=== PATIENT | female | born 1995 | race Caucasian/White ===

== ENCOUNTER 2016-11-29 21:55 | Emergency (ER) | payer BC ==
[~2016-11-29] VITALS: Ht 160 cm; Wt 93.5 kg
[2016-11-29 21:58] VITALS: TEMP 37; Ht 160 cm; Wt 93.5 kg
[2016-11-29] MEDS ORDERED: BCPILLS PO (22:28)
[2016-11-29] MEDS ORDERED: DiphenhydrAMINE HCL 50 MG/ML VIAL IV STA (22:35)
[2016-11-29] MEDS ORDERED: DEXAMETHASONE SOD INJ 10 MG/ML VIAL IV STA (22:35)
[2016-11-29] MEDS ORDERED: PROCHLORPERAZINE 5 MG/ML 2 ML VIAL IV STA (22:35)
[2016-11-29] MEDS ORDERED: SODIUM CHLORIDE 0.9% 1000ML 1,000 ML IV STA (22:35)
[2016-11-29] MEDS ORDERED: KETOROLAC TROMETHAMINE 30 MG/ML VIAL IV STA (22:35)
--- NOTE | 2016-11-29 23:06 | EMERGENCY ROOM VISIT NOTE ---
History Report prepared by Blue: Coty Castillo Under the Supervision of: Dr. Galileo Erwin M.D. First contact with patient: 22:27 Chief Complaint: HEADACHE Stated Complaint: PERSISTING HEADACHEMWOKE UP W UPSET STOMACH,FEVER History of Present Illness The patient is a 21 year old female who presents to the Emergency Room with complaints of constant headache for the past 3 days. She reports a history of headaches that typically occur around the 3rd week of her menstrual cycle. She has never followed up with neurology or had any imaging of her head. The patient states that this particular headache is different than her typical headaches. Her LNMP was 1 week ago, so the timing is different. She reports that today she developed nausea with her headache, which has never happened before. The patient's pain started in the front of her head but has moved into the back of her head and her neck. She rates her current pain as a 4/10 in severity. She denies any pain with movement of neck. She denies fever, vomiting , abdominal pain, chance of , and any changes in vision. The patient has been taking ibuprofen for her symptoms. Source of History: patient Onset: 3 days ago Position: head Symptom Intensity: 4/10 Timing: constant Modifying Factors (Relieving): ibuprofen Associated Symptoms: + nausea, No abdominal pain, No fevers, No vomiting Review of Systems See HPI for pertinent positives & negatives. A total of 10 systems reviewed and were otherwise negative. Past Medical & Surgical Medical Problems: (1) PCOS (polycystic ovarian syndrome) Surgical Problems: (1) H/O wisdom tooth extraction Family History Diabetes mellitus Hypertension Social History Smoking Status: Never Smoker Smokeless Tobacco Use: No Alcohol Use: occasionally Marital Status: single Housing Status: lives with roommate Occupation Status: [employer] student Current/Historical Medications Scheduled Control Pills ( Control Pills), 1 TAB PO DAILY Allergies Coded Allergies: No Known Allergies (Unverified , 11/29/16) Physical Exam Vital Signs Date Time Temp Pulse Resp B/P Pulse Ox O2 Delivery O2 Flow Rate FiO2 11/29/16 23:22 54 11/29/16 23:18 58 24 142/79 99 Room Air 11/29/16 23:14 99 Room Air 11/29/16 21:58 37.0 78 20 168/83 98 Room Air Physical Exam GENERAL: Patient is a healthy-appearing well-nourished 21 year old female. HEAD: Normocephalic atraumatic EYES: Ocular movements intact pupils equal and react to light OROPHARYNX mucous membranes are moist no exudates present no erythema or edema present NECK: Supple no nuchal rigidity, no evidence of meningitis or encephalitis on exam. CHEST: Good equal expansion LUNGS: Clear and equal to auscultation CARDIAC: Normal S1 and S2 ABDOMEN: Soft nontender no guarding BACK: No CVA tenderness EXTREMITIES: No pain upon palpation normal muscle strength in all groups no clubbing cyanosis or edema NEURO: Patient is following commands is answering questions appropriately. Alert and oriented x3 Cranial Nerves 2-12 grossly intact Medical Decision & Procedures Laboratory Results 11/29/16 23:00 Red Blood Count 4.62, Mean Corpuscular Volume 80.5, Mean Corpuscular Hemoglobin 29.0, Mean Corpuscular Hemoglobin Concent 36.0, Mean Platelet Volume 10.7, Neutrophils (%) (Auto) 63.1, Lymphocytes (%) (Auto) 28.0, Monocytes (%) (Auto) 7.4, Eosinophils (%) (Auto) 1.0, Basophils (%) (Auto) 0.2, Neutrophils # (Auto) 5.65, Lymphocytes # (Auto) 2.51, Monocytes # (Auto) 0.66, Eosinophils # (Auto) 0.09, Basophils # (Auto) 0.02 11/29/16 23:00 Test 11/29/16 23:00 11/29/16 23:20 White Blood Count 8.96 K/uL (4.8-10.8) Red Blood Count 4.62 M/uL (4.2-5.4) Hemoglobin 13.4 g/dL (12.0-16.0) Hematocrit 37.2 % (37-47) Mean Corpuscular Volume 80.5 fL (80-100) Mean Corpuscular Hemoglobin 29.0 pg (25-34) Mean Corpuscular Hemoglobin Concent 36.0 g/dl (32-36) Platelet Count 226 K/uL (130-400) Mean Platelet Volume 10.7 fL (7.4-10.4) Neutrophils (%) (Auto) 63.1 % Lymphocytes (%) (Auto) 28.0 % Monocytes (%) (Auto) 7.4 % Eosinophils (%) (Auto) 1.0 % Basophils (%) (Auto) 0.2 % Neutrophils # (Auto) 5.65 K/uL (1.4-6.5) Lymphocytes # (Auto) 2.51 K/uL (1.2-3.4) Monocytes # (Auto) 0.66 K/uL (0.11-0.59) Eosinophils # (Auto) 0.09 K/uL (0-0.5) Basophils # (Auto) 0.02 K/uL (0-0.2) RDW Standard Deviation 36.3 fL (36.4-46.3) RDW Coefficient of Variation 12.5 % (11.5-14.5) Immature Granulocyte % (Auto) 0.3 % Immature Granulocyte # (Auto) 0.03 K/uL (0.00-0.02) Red Blood Cell Morphology Unremarkable Anion Gap 15.0 mmol/L (3-11) Est Creatinine Clear Calc Drug Dose 140.1 ml/min Estimated GFR () 144.2 Estimated GFR (Non- 124.4 BUN/Creatinine Ratio 21.7 (10-20) Calcium Level 8.9 mg/dl (8.5-10.1) Total Bilirubin 0.2 mg/dl (0.2-1) Direct Bilirubin < 0.1 mg/dl (0-0.2) Aspartate Amino Transf (AST/SGOT) 16 U/L (15-37) Alanine Aminotransferase (ALT/SGPT) 27 U/L (12-78) Alkaline Phosphatase 53 U/L (45-117) Total Protein 7.7 gm/dl (6.4-8.2) Albumin 3.7 gm/dl (3.4-5.0) Urine Color YELLOW Urine Appearance CLEAR (CLEAR) Urine pH 5.0 (4.5-7.5) Urine Specific Stryker 1.014 (1.000-1.030) Urine Protein NEG (NEG) Urine Glucose (UA) NEG (NEG) Urine Ketones NEG (NEG) Urine Occult Blood NEG (NEG) Urine Nitrite NEG (NEG) Urine Bilirubin NEG (NEG) Urine Urobilinogen NEG (NEG) Urine Leukocyte Esterase NEG (NEG) Labs reviewed by ED physician. Medications Administered Medications (Trade) Dose Ordered Sig/Jovany Route Start Time Stop Time Status Last Admin Dose Admin Sodium Chloride (Nss 1000ml) 1,000 ml @ 999 mls/hr Q1H1M STAT IV 11/29/16 22:35 11/29/16 23:35 11/29/16 23:13 999 MLS/HR Ketorolac Tromethamine (Toradol Inj) 30 mg NOW STAT IV 11/29/16 22:35 11/29/16 22:37 DC 11/29/16 23:14 30 MG Prochlorperazine Edisylate (Compazine Inj) 10 mg NOW STAT IV 11/29/16 22:35 11/29/16 22:37 DC 11/29/16 23:13 10 MG Diphenhydramine HCl (Benadryl Inj) 50 mg NOW STAT IV 11/29/16 22:35 11/29/16 22:37 DC 11/29/16 23:14 50 MG Dexamethasone Sodium Phosphate (Decadron Inj) 10 mg NOW STAT IV 11/29/16 22:35 11/29/16 22:37 DC 11/29/16 23:14 10 MG Lorazepam (Ativan Inj) 0.5 mg NOW STAT IV 11/29/16 23:40 11/29/16 23:41 11/29/16 23:50 0.5 MG ED Course 2227: Past medical records reviewed. The patient was evaluated in room B5. A complete history and physical examination was performed. 2235: Decadron 10 mg IV, Benadryl 50 mg IV, Compazine 10 mg IV, Toradol 30 mg IV , NSS 1000 ml @ 999 ms/hr IV 2339: I reassessed the patient at this time. She is feeling better and resting comfortably. I discussed the results and treatment plan with the patient. I answered all pertaining questions that she had. She expressed understanding and verbalized agreement. The patient will be discharged home. 2340: Ativan 0.5 mg IV Medical Decision Differential diagnosis: Etiologies such as migraine headache, meningitis, sinusitis, CO exposure, ICH, SAH, infection, tumor, headache, sinus thrombosis, arterial dissection, as well as others were entertained. This is a 21-year-old female who presents emergency department complaining of headache. The patient is concerned about meningitis however she is healthy in appearance has no neck pain and no tenderness when moving her neck. Meningitis is low home for unexplained the only way to rule out meningitis is severely lumbar puncture. The patient refused this procedure. She has a normal white blood count normal renal profile normal liver profile normal lipase. I do believe that the patient is well enough to be discharged home. An IV was established, patient given normal saline bolus, Toradol, Compazine, Benadryl. Repeat examination revealed improvement patient's symptoms. I encouraged patient follow-up with Dr. Eastman and return if her headache becomes severe. Impression Primary Impression: Headache Scribe Attestation The scribe's documentation has been prepared under my direction and personally reviewed by me in its entirety. I confirm that the note above accurately reflects all work, treatment, procedures, and medical decision making performed by me. Departure Information Dispostion Home / Self-Care Referrals [facility] Forms HOME CARE DOCUMENTATION FORM, IMPORTANT VISIT INFORMATION, School Instructions, Work Instructions Patient Instructions ED Headache Migraine, Headache Pain, My [facility] Additional Instructions Follow up with DR Eastman's office You have been examined and treated today on an emergency basis only. This is not a substitute for, or an effort to provide, complete comprehensive medical care. It is impossible to recognize and treat all injuries or illnesses in a single emergency department visit. It is therefore important that you follow up closely with [facility]. Call as soon as possible for an appointment. Thank you for your time and consideration. I look forward to speaking with you again soon. Please don't hesitate to call us if you have any questions. Problem Qualifiers Primary Impression: Headache Headache type: unspecified Headache chronicity pattern: acute headache Intractability: not intractable Qualified Codes: R51 - Headache
[2016-11-29 23:14] VITALS: O2SAT 99
[2016-11-29 23:16] LABS: HEMATOCRIT 37.2 % (37-47); MEAN CELL VOLUME 80.5 fL (80-100); MEAN PLATELET VOLUME 10.7 fL (7.4-10.4); PLATELET COUNT 226 K/uL (130-400); RED BLOOD COUNT 4.62 M/uL (4.2-5.4); WHITE BLOOD COUNT 8.96 K/uL (4.8-10.8)
[2016-11-29 23:33] LABS: ALT/SGPT 27 U/L (12-78); AST/SGOT 16 U/L (15-37); BLOOD UREA NITROGEN 15 mg/dl (7-18); BUN/CREATININE RATIO 21.7 (10-20); CALCIUM 8.9 mg/dl (8.5-10.1); CARBON DIOXIDE 23 mmol/L (21-32); CHLORIDE 107 mmol/L (98-107); CREATININE 0.69 mg/dl (0.60-1.20); GLUCOSE 95 mg/dl (70-99); POTASSIUM 3.7 mmol/L (3.5-5.1); SODIUM 145 mmol/L (136-145)
[2016-11-29 23:36] LABS: ALKALINE PHOSPHATASE 53 U/L (45-117)
[2016-11-29 23:40] LABS: URINE APPEARANCE CLEAR (CLEAR); URINE BILIRUBIN NEG (NEG); URINE COLOR YELLOW; URINE NITRITE NEG (NEG); URINE SPECIFIC GRAVITY 1.014 (1.000-1.030); UROBILINOGEN NEG (NEG)
[2016-11-29] MEDS ORDERED: LORAZEPAM 2 MG/ML 1 ML VIAL IV STA (23:40)
[2016-11-29 23:43] LABS: BASO % 0.2 %; BASO ABS # 0.02 K/uL (0-0.2); COMPLETE YES; IG% 0.3 %; LYMPH ABS # 2.51 K/uL (1.2-3.4); MONO % 7.4 %; NEUT % 63.1 %
[2016-11-29 23:46] LABS: MANUAL MICROSCOPIC REQUIRED? NO; REVIEW REQ? NO
[2016-11-30 00:13] VITALS: BP 149/86; PULSE 91; O2SAT 100
== END 2016-11-30 00:14 | disposition home or self-care (01) ==
LOC: C.EDB 21:57
DX: R51 Headache (principal); R11.0 Nausea; E28.2 Polycystic ovarian syndrome; Z79.3 Long term (current) use of hormonal contraceptives; Z82.49 Family history of ischemic heart disease and other diseases of the circulatory system; Z83.3 Family history of diabetes mellitus

== ENCOUNTER 2016-12-24 13:33 | Emergency (ER) | payer BC ==
[~2016-12-24] VITALS: Ht 160 cm; Wt 95.5 kg
[~2016-12-24 13:33] MED LIST: BCPILLS PO
[2016-12-24 13:41] VITALS: TEMP 37.3; Ht 160 cm; Wt 95.5 kg
[2016-12-24] MEDS ORDERED: ACETAMINOPHEN 500 MG TAB PO STA (14:10)
[2016-12-24] MEDS ORDERED: SODIUM CHLORIDE 0.9% 1000ML 1,000 ML IV STA (14:10)
--- NOTE | 2016-12-24 14:45 | DIAGNOSTIC IMAGING REPORT ---
CHEST ONE VIEW PORTABLE CLINICAL HISTORY: EVALUATE ALTERED MENTAL STATUS/WEAKNESS dyspnea COMPARISON STUDY: No previous studies for comparison. FINDINGS: The bones soft tissues and hemidiaphragms are normal. The cardiomediastinal silhouette is normal. The lungs are clear. The pulmonary vasculature is normal. IMPRESSION: Negative chest. Electronically signed by: Alex Woods M.D. 12/24/2016 2:44 PM Dictated Date/Time: 12/24/2016 2:32 PM
[2016-12-24 14:51] LABS: URINE APPEARANCE CLEAR (CLEAR); URINE BILIRUBIN NEG (NEG); URINE COLOR YELLOW; URINE NITRITE NEG (NEG); URINE PH 6.5 (4.5-7.5); URINE SPECIFIC GRAVITY 1.002 (1.000-1.030); UROBILINOGEN NEG (NEG); ZZUR CULT IF INDIC CLEAN CATCH NO
[2016-12-24 14:58] LABS: MANUAL MICROSCOPIC REQUIRED? NO; REVIEW REQ? NO
[2016-12-24 15:00] LABS: HEMATOCRIT 42.1 % (37-47); MEAN CORPUSCULAR HGB CONC 34.9 g/dl (32-36); MEAN PLATELET VOLUME 10.6 fL (7.4-10.4); PLATELET COUNT 207 K/uL (130-400); RED BLOOD COUNT 5.07 M/uL (4.2-5.4); WHITE BLOOD COUNT 9.87 K/uL (4.8-10.8)
[2016-12-24 15:18] LABS: BUN/CREATININE RATIO 13.1 (10-20); CREATININE 0.82 mg/dl (0.60-1.20); POTASSIUM 3.8 mmol/L (3.5-5.1)
[2016-12-24 15:25] LABS: PREG INTERNAL NEGATIVE QC NEG CLEAR BACKGROUND; PREG INTERNAL POSITIVE QC POS CONTROL LINE
[2016-12-24 15:29] LABS: THYROID STIMULATING HORMONE 1.25 uIu/ml (0.300-4.500)
--- NOTE | 2016-12-24 15:41 | EMERGENCY ROOM VISIT NOTE ---
History Report prepared by Blue: Anderson Braun Under the Supervision of: Dr. Lito Mccormack M.D. First contact with patient: 14:09 Chief Complaint: LEG PAIN,LEG INJURY Stated Complaint: NUMBNESS IN LEGS - HARD SPOT BELOW LEFT CALF History of Present Illness The patient is a 21 year old female who presents to the Emergency Room with complaints of persistent numbness in bilateral legs starting this morning. Yesterday, the patient started having pins and needles in her feet. She woke up this morning with a hard spot on her left calf. She denies any throbbing sensation or warmth. She also started having numbness in her legs bilaterally. She denies any pain. She denies any recent trauma or strenuous activities. She was evaluated at [facility] today and was referred to the Emergency Room. About 3 weeks ago, the patient started having a headache which resolved after she was evaluated by her PCP. She also switched her control medication a few weeks ago. She woke up today with a headache but reports that the quality is similar to her past headaches. She denies any recent falls or hitting her head. She denies any personal or family history of blood clots. She drove 3 hours to home about 2 weeks ago and [facility] [employer] about 5 days ago. The patient denies fevers, chills, urinary symptoms, or any other complaints. She denies any chance of . Source of History: patient Onset: this morning Position: leg (bilateral) Symptom Intensity: No pain Quality: numbness Timing: other (persistent) Associated Symptoms: + headache, No chills, No fevers, No urinary symptoms Review of Systems See HPI for pertinent positives & negatives. A total of 10 systems reviewed and were otherwise negative. Past Medical & Surgical Medical Problems: (1) Murmur (2) PCOS (polycystic ovarian syndrome) Surgical Problems: (1) H/O wisdom tooth extraction Family History Diabetes mellitus Heart murmur Hypertension Social History Smoking Status: Never Smoker Alcohol Use: occasionally Marital Status: single Housing Status: lives with roommate Occupation Status: [employer] student Current/Historical Medications Scheduled Control Pills ( Control Pills), 1 TAB PO HS Allergies Coded Allergies: No Known Allergies (Unverified , 11/29/16) Physical Exam Vital Signs Date Time Temp Pulse Resp B/P Pulse Ox O2 Delivery O2 Flow Rate FiO2 12/24/16 16:00 81 16 145/78 99 Room Air 12/24/16 13:41 37.3 127 18 160/95 99 Room Air Physical Exam GENERAL: Patient is in no acute distress. HEENT: No acute trauma, normocephalic atraumatic, mucous membranes moist, no nasal congestion, no scleral icterus. NECK: No stridor, no adenopathy, no meningismus, trachea is midline. LUNGS: Clear to auscultation bilaterally, no wheeze, no rhonchi, breath sounds equal. HEART: 2/6 systolic murmur, mildly tachycardic with a regular rhythm. ABDOMEN: Soft, nontender, bowel sounds positive, no hernias, no peritonitis. EXTREMITIES: No cyanosis or edema, full range of motion of all the joints without pain or difficulty, no signs for acute trauma. No cellulitis or venous engorgement. +2 pedal pulses bilaterally. NEUROLOGIC: Oriented x 3, no acute motor or sensory deficits, no focal weakness. No pronator drift or cerebellar dysfunction. SKIN: No rash, no jaundice, no diaphoresis. Medical Decision & Procedures ER Provider Diagnostic Interpretation: X ray results and stated below per my interpretation and radiologist interpretation. US results and stated below per my review and radiologist interpretation: CHEST ONE VIEW PORTABLE CLINICAL HISTORY: EVALUATE ALTERED MENTAL STATUS/WEAKNESS dyspnea COMPARISON STUDY: No previous studies for comparison. FINDINGS: The bones soft tissues and hemidiaphragms are normal. The cardiomediastinal silhouette is normal. The lungs are clear. The pulmonary vasculature is normal. IMPRESSION: Negative chest. Electronically signed by: Alex Woods M.D. 12/24/2016 2:44 PM Dictated Date/Time: 12/24/2016 2:32 PM BILATERAL LOWER EXTREMITY VENOUS DOPPLER HISTORY: Pain. Edema. swelling, travel COMPARISON STUDY: None. FINDINGS: There is normal compressibility, flow, and augmentation within the bilateral lower extremity deep venous systems. IMPRESSION: No DVT within the right or left lower extremity. Note is made that localized evaluation at the posterior calf was performed at the site of a clinically palpable nodule per patient. No ultrasonic abnormality was identified at this site Electronically signed by: Alex Woods M.D. 12/24/2016 3:53 PM Dictated Date/Time: 12/24/2016 3:50 PM Laboratory Results 12/24/16 14:51 12/24/16 14:51 Test 12/24/16 14:41 12/24/16 14:51 Urine Color YELLOW Urine Appearance CLEAR (CLEAR) Urine pH 6.5 (4.5-7.5) Urine Specific Melvin 1.002 (1.000-1.030) Urine Protein NEG (NEG) Urine Glucose (UA) NEG (NEG) Urine Ketones NEG (NEG) Urine Occult Blood NEG (NEG) Urine Nitrite NEG (NEG) Urine Bilirubin NEG (NEG) Urine Urobilinogen NEG (NEG) Urine Leukocyte Esterase NEG (NEG) Red Blood Count 5.07 M/uL (4.2-5.4) Mean Corpuscular Volume 83.0 fL (80-100) Mean Corpuscular Hemoglobin 29.0 pg (25-34) Mean Corpuscular Hemoglobin Concent 34.9 g/dl (32-36) RDW Standard Deviation 38.2 fL (36.4-46.3) RDW Coefficient of Variation 12.8 % (11.5-14.5) Mean Platelet Volume 10.6 fL (7.4-10.4) Anion Gap 8.0 mmol/L (3-11) Est Creatinine Clear Calc Drug Dose 119.3 ml/min Estimated GFR () 118.6 Estimated GFR (Non- 102.3 BUN/Creatinine Ratio 13.1 (10-20) Calcium Level 9.0 mg/dl (8.5-10.1) Magnesium Level 2.0 mg/dl (1.8-2.4) Total Bilirubin 0.3 mg/dl (0.2-1) Aspartate Amino Transf (AST/SGOT) 13 U/L (15-37) Alanine Aminotransferase (ALT/SGPT) 35 U/L (12-78) Alkaline Phosphatase 56 U/L (45-117) Total Creatine Kinase 84 U/L (26-192) Total Protein 7.8 gm/dl (6.4-8.2) Albumin 3.9 gm/dl (3.4-5.0) Globulin 3.9 gm/dl (2.5-4.0) Albumin/Globulin Ratio 1.0 (0.9-2) Thyroid Stimulating Hormone (TSH) 1.250 uIu/ml (0.300-4.500) Human Chorionic Gonadotropin, Qual NEG (NEG) Laboratory results reviewed by me. Medications Administered Medications (Trade) Dose Ordered Sig/Jovany Route Start Time Stop Time Status Last Admin Dose Admin Sodium Chloride (Nss 1000ml) 1,000 ml @ 999 mls/hr Q1H1M STAT IV 12/24/16 14:10 12/24/16 15:10 DC 12/24/16 14:38 999 MLS/HR Acetaminophen (Tylenol Tab) 1,000 mg NOW STAT PO 12/24/16 14:10 12/24/16 14:19 DC 12/24/16 14:38 1,000 MG ECG Indication: other (Left leg numbness) Rate (beats per minute): 80 Rhythm: normal sinus Findings: no acute ischemic change, no ectopy ED Course 1409: The patient was evaluated in room A02. A complete history and physical exam was performed. 1410: Tylenol Tab 1000 mg PO, Sodium Chloride 1000 ml @ 999 mls/hr IV 1611: Reevaluated the patient. Discussed results and discharge instructions: She verbalized understanding and agreement. The patient is ready for discharge. Medical Decision Differential diagnosis includes but is not limited to electrolyte imbalance, anemia, dehydration, thyroid disorder, DVT, musculoskeletal pain, dysrhythmia. There is no leukocytosis or concerning anemia. No significant electrolyte abnormality, kidney failure, hepatitis. The patient appears to be in a euthyroid state. EKG shows a normal sinus rhythm, no ischemia. Chest x-ray does not show cardiomegaly, CHF or pneumothorax. Bilateral lower extremity ultrasound does not show evidence for DVT. Urinalysis does not show infection. testing is negative. On exam, the patient has strong and equal pulses in both lower extremities. There are no focal neurologic deficits on exam. The patient received IV saline for hydration, she was given oral Tylenol for her headache. She is doing well, she is feeling improved. The patient was reassured by her testing. Her headache is an ongoing problem for her and she has dealt with similar headaches before. I do not think the headache is related to her lower extremity complaints. She was reassured by the negative DVT testing. She was encouraged to rest and to return here for worsening symptoms. Impression Primary Impression: Pain of left calf Additional Impression: Numbness and tingling of both legs Scribe Attestation The scribe's documentation has been prepared under my direction and personally reviewed by me in its entirety. I confirm that the note above accurately reflects all work, treatment, procedures, and medical decision making performed by me. Departure Information Dispostion Home / Self-Care Referrals No Doctor, Assigned (PCP) Forms HOME CARE DOCUMENTATION FORM, IMPORTANT VISIT INFORMATION Patient Instructions My [facility] Additional Instructions rest fluids follow up for a repeat ultrasound if still having symptoms at 1 week return for worsening symptoms all testing today was ok as we discussed Problem Qualifiers
--- NOTE | 2016-12-24 15:54 | DIAGNOSTIC IMAGING REPORT ---
BILATERAL LOWER EXTREMITY VENOUS DOPPLER HISTORY: Pain. Edema. swelling, travel COMPARISON STUDY: None. FINDINGS: There is normal compressibility, flow, and augmentation within the bilateral lower extremity deep venous systems. IMPRESSION: No DVT within the right or left lower extremity. Note is made that localized evaluation at the posterior calf was performed at the site of a clinically palpable nodule per patient. No ultrasonic abnormality was identified at this site Electronically signed by: Alex Woods M.D. 12/24/2016 3:53 PM Dictated Date/Time: 12/24/2016 3:50 PM
[2016-12-24 16:00] VITALS: BP 145/78; PULSE 81; O2SAT 99
== END 2016-12-24 16:25 | disposition home or self-care (01) ==
LOC: C.EDB 13:35 → C.EDA 16:25
DX: M79.605 Pain in left leg (principal); R20.0 Anesthesia of skin; E28.2 Polycystic ovarian syndrome; Z83.3 Family history of diabetes mellitus; Z82.49 Family history of ischemic heart disease and other diseases of the circulatory system